=== PATIENT | male | born 1975 ===

== ENCOUNTER 2024-12-30 08:48 | Emergency (ER) | payer OTHER, SELFPAY ==
[2024-12-30 08:51] VITALS: BP 144/88; PULSE 65; RESP 18; TEMP 36.6; O2SAT 98; BMI 24.8
--- NOTE | 2024-12-30 10:08 | ED_ITS ---
HPI - General Adult General Chief complaint: General Medical Stated complaint: Swollen lymph nodes Time Seen by Provider: 12/30/24 10:08 History of Present Illness ED Provider: Carrillo BURDEN narrative: The patient is a 49-year-old male with no known past medical history aside from a lot of dental problems. He says that he has had problems with swollen glands under his jaw for several years. He says that as far back as 2017 a family member commented on the swelling of these glands. The patient says that he has had a lot of dental problems on the molars of his jaw on both sides and that he tended to attributed in any swelling under his jaw to these dental problems. He has had several of these molars removed over the years. He comes to the emergency room today saying he feels that the swelling of the glands under his jaw has been more prominent over the last several days and he felt he should be evaluated. He has had no fever, sweats, chills. No night sweats. No weight loss. Has no dental complaints currently. Related Data Allergies Allergy/AdvReac Type Severity Reaction Status Date / Time No Known Allergies Allergy Verified 12/30/24 08:55 Review of Systems 2 Review of Systems: Yes all other systems are reviewed and are negative PMFSH Social History Social History Advance Directives: No Advance Directives Information Provided: Yes Do you have a plan to hurt others: No Plan Physical Exam ED Vital Signs: Vital Signs - 24 hr 12/30/24 08:51 12/30/24 12:23 Temperature 98 F 98 F Pulse Rate 65 65 Respiratory Rate 18 18 Blood Pressure 144/88 H 144/88 H Pulse Oximetry 98 98 Oxygen Delivery Method Room Air Room Air BMI result Body Mass Index 24.8 Const Other: The patient is a 49-year-old man who was awake, alert, pleasant, cooperative. He does not appear obviously ill. Orientation/consciousness: patient oriented x3 HENMT Other: Face is symmetrical. There was no trismus. The patient has had several molars on both sides of the jaw removed. There was no obvious acute intra oral abnormality. He has obviously palpable and mildly enlarged submandibular glands bilaterally. I do not appreciate any significant abnormality to the floor of the mouth. Eyes Other: Pupils are round equal, conjunctivae are clear, extraocular movements intact Neck Other: The patient has large and easily palpable submandibular glands bilaterally under each side of the jaw. These glands are not particularly tender in any way. I do not appreciate any swelling that I would attribute to any lymph nodes on either side. Had he not think there is any significant adenopathy on either side of the neck. The neck is supple and benign otherwise. Resp Effort & Inspection: normal respiratory effort Auscultation: clear to auscultation bilaterally Cardio Rate: regular rate Rhythm: regular rhythm Heart sounds: S1 normal heart sound present and S2 normal heart sound present Skin Other: Skin is dry and unremarkable. No erythema. Neuro General: patient oriented x3, gait normal, tone normal, moves all extremities, no focal motor deficits and CN's II-XI intact bilaterally Extrem Other: No peripheral edema. Medical Decision Making Medical Decision Making MDM Narrative: The patient is a 49-year-old male who presents out of concern that his submandibular glands seem prominent. They are not painful or tender. He says that they has been more prominent over the last few days but he also seems to describe a long history of prominence of these glands going back as far as 2018. clinically the patient does not appear unwell. He has a dental intake appointment at a [place] [facility] in 2 days' time. He does not have a PCP although he does have health insurance. Blood testing was done that shows an unremarkable CBC with a normal white count and differential. ESR is 11. his chemistries show a mildly elevated alk phos of 141. CRP minimally abnormal at 0.51. Clinically the patient does not seem acutely ill in any way and I do not think he requires additional testing in the emergency department. I do not have a very good explanation for the swelling in his submandibular glands but he seems to describe issues with his submandibular glands going back possibly as far as 2018. This makes me less inclined to think that any acutely dangerous process is at work. He has an intake appointment for a dental evaluation had a dental school clinic in [place] in 2 days' time. He is encouraged to keep this appointment. The patient is also given the contact information for the local ENT office. He is also given the contact information for local PCP offices. He is encouraged to follow up with the ENT and to try to get a PCP. He should return to the emergency room if worse. Lab Data 12/30/24 10:58 12/30/24 10:58 Labs: Lab Results 12/30/24 Range/Units 10:58 WBC 5.0 (4.8-10.8) X10*3/uL RBC 5.40 (4.60-5.80) X10*6/uL Hgb 14.1 (14.0-18.0) g/dl Hct 42.7 (42.0-52.0) % MCV 79.1 L (80.0-98.0) fL MCH 26.1 L (27.0-33.0) pg MCHC 33.0 (31.0-36.0) g/dl RDW 13.1 (11.0-16.0) % Plt Count 239 (160-400) X10*3/uL MPV 9.9 (9.4-12.4) fL Immature Gran % (Auto) 0.4 (0.0-0.4) % Neut % (Auto) 62.8 (45-73) % Lymph % (Auto) 26.7 (20-40) % [place] % (Auto) 7.9 (2-11) % Eos % (Auto) 1.4 (0-4) % Baso % (Auto) 0.8 (0-2) % Lymph # (Auto) 1.3 (1.2-4.9) X10*3/uL [place] # (Auto) 0.4 (0.1-1.2) X10*3/uL Eos # (Auto) 0.1 (0.0-0.4) X10*3/uL Baso # (Auto) 0.0 (0.0-0.2) X10*3/uL Abs Immat Gran (auto) 0.02 (0.00-0.03) X10*3/uL Absolute Neuts (auto) 3.1 (2.0-8.3) x10*3/uL Absolute Nucleated RBC 0.000 (0.0-0.012) X10*3/uL Nucleated RBC % (auto) 0.0 (0.0-0.2) /100WBC ESR 11 (0-15) MM/HR Sodium 141 (135-145) mmol/L Potassium 3.8 (3.3-5.1) mmol/L Chloride 105 (96-108) mmol/L Carbon Dioxide 29 (22-29) mmol/L Anion Gap 11 L (12-20) BUN 11 (9-16) mg/dL Creatinine 0.79 (0.5-1.4) mg/dL Estim Creat Clear Calc 122.7 Estimated GFR > 60 Random Glucose 111 (60-115) mg/dL Calcium 9.4 (8.4-10.2) mg/dL Total Bilirubin 0.5 (0.0-1.0) mg/dL Direct Bilirubin 0.1 (0.0-0.5) mg/dL AST 21 (5-37) U/L ALT 36 (0-40) U/L Alkaline Phosphatase 141 H (39-117) U/L C-Reactive Protein 0.51 H (< or = 0.50) mg/dL Total Protein 8.1 H (6.5-8.0) g/dL Albumin 4.9 (3.5-5.0) g/dL Discharge Plan Discharge Clinical Impression: Submandibular gland swelling Patient Disposition: Home, Self-Care Additional Instructions: Your blood testing today is quite reassuring. I think the swelling present under your jaws is swelling of your submandibular glands rather than lymph nodes. I think getting a dental opinion his reasonable. Please follow up with your plans currently in [place]. Additionally you can try to make an appointment at the ENT office. See the contact information provided. Additionally please work on getting a new primary care doctor. The contact information for several primary care doctor's offices has been provided. You can also contact your insurance for assistance in getting a primary care doctor. Return to the emergency room if significantly worse. [place]: [facility] [facility]Provider Group, Internal Medicine] [facility] [Provider Group, Internal Medicine] [facility] [facility] [Provider Group, Primary Care] [facility] [Provider Group, Primary Care] [facility] [place] [Provider Group] [facility] [Outside] Referral Note: submandibular gland swelling Interventions: ED Discharge Assessment Last Done: 12/30/24 12:23 Discharge Date/Time: 12/30/24 12:23 Print Language: Sami
[2024-12-30 11:06] LABS: MANUAL DIFF FLAG NO
[2024-12-30 11:09] LABS: Hematocrit 42.7 % (42.0-52.0); Hemoglobin 14.1 g/dl (14.0-18.0); Imm Gran Abs Auto 0.02 X10*3/uL (0.00-0.03); Imm Gran Pct Auto 0.4 % (0.0-0.4); Lymphocytes Absolute Auto 1.3 X10*3/uL (1.2-4.9); Mean Corpuscular HGB Conc 33.0 g/dl (31.0-36.0); Mean Corpuscular Hemoglobin 26.1 pg (27.0-33.0); Mean Corpuscular Volume 79.1 fL (80.0-98.0); NRBC Abs Auto 0.000 X10*3/uL (0.0-0.012); NRBC Pct Auto 0.0 /100WBC (0.0-0.2); Platelet Count 239 X10*3/uL (160-400); Red Blood Count 5.40 X10*6/uL (4.60-5.80); White Blood Count 5.0 X10*3/uL (4.8-10.8)
--- NOTE | 2024-12-30 11:09 | PC.NURSE ---
Labs drawn and sent for analysis. Results pending. Care ongoing by this RN.
[2024-12-30 11:24] LABS: Alanine Aminotransferase 36 U/L (0-40); Albumin Level 4.9 g/dL (3.5-5.0); Alkaline Phosphatase 141 U/L (39-117); Anion Gap 11 (12-20); Aspartate Amino Transferase 21 U/L (5-37); Blood Urea Nitrogen 11 mg/dL (9-16); Calcium 9.4 mg/dL (8.4-10.2); Carbon Dioxide 29 mmol/L (22-29); Chloride 105 mmol/L (96-108); Creatinine Clr Calc Pharmacy 122.7; Estimated Glomerular Filt Rate > 60; Potassium 3.8 mmol/L (3.3-5.1); Sodium 141 mmol/L (135-145); Total Protein 8.1 g/dL (6.5-8.0)
[2024-12-30 12:23] VITALS: BP 144/88; PULSE 65; RESP 18; TEMP 36.6; O2SAT 98
== END 2024-12-30 12:23 | disposition home or self-care (01) ==
PROVIDERS: Emergency Provider Emergency Medicine
DX: R59.9 Enlarged lymph nodes, unspecified (principal)
CPT/HCPCS: 36415; 80048; 80076; 85025; 85652; 86140; 99282; 99283